=== PATIENT | female | born 1930 | race Caucasian/White ===

== ENCOUNTER 2017-02-03 11:37 | Inpatient (IN) | payer OTHER ==
[~2017-02-03] VITALS: Ht 154.9 cm; Wt 63.7 kg
--- NOTE | ~2017-02-03 | 2DMMODE ---
[facility] [address] [facility] [place] [address] 2 D/M-MODE ECHOCARDIOGRAM Name: TELMA MORRIS Room #: 217-P ADM IN M.R.#: [id number] Admission: 02/03/17 Attend Phys: Vishal Luevano, Discharge: Date of : [birth year] Date of Service: 02/04/17 1309 Report #: [id number] THIS REPORT FOR: //name// APPROVED REPORT Study performed: 02/04/2017 10:21:11 EXAM: Comprehensive 2D, Doppler, and color-flow Echocardiogram Patient Location: Bedside Room #: 217 Status: on-call Other Information Study Quality: Excellent Indications Congestive Heart Failure Atrial Fibrillation Dyspnea 2D Dimensions RVDd: 47.62 mm LVEF(%): 53.32 (>50%) IVSd: 14.02 (7-11mm) LVOT Diam: 22.12 (18-24mm) LVDd: 40.37 mm PWd: 16.06 (7-11mm) LVDs: 29.43 (25-40mm) Aortic Root: 34.41 mm IVC: 32.00 mm Randolph's LVEF: 53.32 % Volumes Left Atrial Volume (Systole) Single Plane 4CH: 133.35 mL Single Plane 2CH: 99.49 mL LA ESV Index: 75.00 mL/m2 Aortic Valve AoV Peak Jeramie.: 0.94 m/s AO Peak Gr.: 3.53 mmHg LVOT Max P.38 mmHg LVOT Max V: 0.59 m/s WHITLEY Vmax: 2.40 cm2 AI Vmax: 2.97 m/s AI Yell: 1.11 m/s2 AI PHT: 774.68 ms Mitral Valve MV Decel. Time: 132.79 ms [facility] [address] [place] [address] 2 D/M-MODE ECHOCARDIOGRAM Name: TELMA MORRIS Room #: [address] [place] [address] IN .R.#: [id number] Admission: 02/03/17 Attend Phys: Vishal Luevano, Discharge: Date of : [birth year] Date of Service: 02/04/17 1309 Report #: [id number] MV E Max Jeramie.: 1.10 m/s IVRT: 89.97 ms Pulmonary Valve PV Peak Jeramie.: 0.59 m/s PV Peak Gr.: 1.40 mmHg Tricuspid Valve TR Peak Jeramie.: 3.00 m/s RAP Estimate: 15.00 mmHg TR Peak Gr.: 36.05 mmHg PA Pressure: 51.00 mmHg Left Ventricle The left ventricle is normal size. There is normal LV segmental wall motion. Mild to moderate concentric left ventricular hypertrophy. The left ventricular systolic function is normal. The left ventricular ejection fraction is within the normal range. LVEF is 55-60%. This study is not technically sufficient to allow evaluation of the LV diastolic function due to atrial fibrillation. Right Ventricle Right ventricle is dilated. Right ventricle is hypokinetic. Atria Left atrium is dilated. Right atrium is dilated. Aortic Valve The aortic valve is normal in structure. Aortic valve is calcified. Aortic valve leaflets are mildly thickened. Mild aortic regurgitation. There is no aortic valvular stenosis. Mitral Valve The mitral valve is normal in structure. There is mitral annular calcification. Mitral valve leaflets are thickened. Mild to moderate mitral regurgitation. No evidence of mitral valve stenosis. Tricuspid Valve The tricuspid valve is normal in structure. There is no tricuspid valve stenosis. There is moderate to severe tricuspid regurgitation. The right atrial pressure is estimated at 15 mmHg. There is moderate pulmonary hypertension. PAP 50 mmHG Pulmonic Valve The pulmonary valve is normal in structure. Trace pulmonic regurgitation. [facility] [address] [place] [address] 2 D/M-MODE ECHOCARDIOGRAM Name: TELMA MORRIS Room #: 217-P [facility]#: [id number] Admission: 02/03/17 Attend Phys: Vishal Luevano, Discharge: Date of : [birth year] Date of Service: 02/04/17 1309 Report #: [id number] Great Vessels The aortic root is normal in size. Dilated IVC with poor inspiration collapse is consistent with elevated right atrial pressure. Pericardium There is no pericardial effusion. <Conclusion> The left ventricle is normal size. Mild to moderate concentric left ventricular hypertrophy. The left ventricular systolic function is normal. The left ventricular ejection fraction is within the normal range. LVEF is 55-60%. There is normal LV segmental wall motion. Right ventricle is dilated. Right ventricle is hypokinetic. Left atrium is dilated. Right atrium is dilated. The aortic valve is normal in structure. Aortic valve is calcified. Aortic valve leaflets are mildly thickened. There is no aortic valvular stenosis. The mitral valve is normal in structure. There is mitral annular calcification. Mitral valve leaflets are thickened. Mild to moderate mitral regurgitation. Mild to moderate mitral regurgitation. There is moderate to severe tricuspid regurgitation. The right atrial pressure is estimated at 15 mmHg. There is moderate pulmonary hypertension. PAP 50 mmHG Dilated IVC with poor inspiration collapse is consistent with elevated right atrial pressure. There is no pericardial effusion. <ELECTRONICALLY SIGNED> By: Lyndon Mcmullen MD 02/04/17 1309 1309 1309 Lyndon Mcmullen MD /INF
--- NOTE | ~2017-02-03 | EKG ---
[address] [address] ELECTROCARDIOGRAM REPORT Name: ARTUROTELMA Room #: 217-P ADM IN M.R.#: [id number] Admission: 02/03/17 Attend Phys: Vishal Luevano DO Discharge: Date of : [birth year] Report #: [id number] THIS REPORT FOR: //name// [facility] ED Test Date: 2017-02-03 Test Time: 11:46:53 Pat Name: TELMA MORRIS Department: Room: 217 Gender: F [employer] Worker: james : [id number] Requested By: Rodney Denis Order Number: [id number] MD: Lyndon Mcmullen Measurements Intervals [place] Rate: 91 P: IA: QRS: 5 QRSD: 91 T: 5 QT: 369 QTc: 455 Interpretive Statements Atrial fibrillation Low voltage, extremity leads No previous ECG available for comparison Electronically Signed On 02-05-2017 22:07:53 CDT by Lyndon Mcmullen [email or web address] <ELECTRONICALLY SIGNED> By: Lyndon Mcmullen MD 02/05/17 2207 D: [id number] Lyndon Mcmullen MD /GALE
[2017-02-03 11:38] VITALS: BP 130/77
[2017-02-03 11:48] LABS: HEMATOCRIT 38.9 % (37.0-47.0); HEMOGLOBIN 13.2 gm/dL (12.0-15.0); MCH 33.6 pg (26.0-34.0); MCV 98.9 fL (80.0-100.0); PLATELET COUNT 168 thou/uL (150-400); RBC 3.94 mil/uL (4.20-5.00); RDW 18.2 % (10.5-14.5); WBC 6.4 thou/uL (4.0-11.0)
[2017-02-03 11:49] LABS: MANUAL DIFF YES
[2017-02-03 12:02] LABS: ANION GAP 7 mmol/L (7-16); BUN 21 mg/dL (7-18); CALCIUM 8.8 mg/dL (8.5-10.1); CHLORIDE 104 mmol/L (98-107); CO2 27 mmol/L (21-32); GLUCOSE 138 mg/dL (74-106); POTASSIUM 4.6 mmol/L (3.5-5.1); SODIUM 138 mmol/L (136-145)
[2017-02-03 12:08] LABS: ALBUMIN 3.5 g/dL (3.4-5.0); ALKALINE PHOSPHATASE 125 U/L (46-116); MAGNESIUM 1.9 mg/dL (1.8-2.4); SGOT 30 U/L (15-37); SGPT 23 U/L (30-65); TOTAL PROTEIN 6.4 g/dL (6.4-8.2); TROPONIN-I < 0.04 ng/mL (<0.04-0.07)
[2017-02-03 12:34] LABS: ABSOLUTE NEUTROPHILS 5.1 thou/uL (1.4-8.2); ANISOCYTOSIS 2+; TOTAL CELL COUNT 100
[2017-02-03 12:35] LABS: BURR CELLS 1+; HYPOCHROMASIA 1+; OVALOCYTES 1+; POIKILOCYTOSIS 2+
[2017-02-03 15:29] LABS: INR 1.7; PROTIME 17.3 Seconds (9.3-11.4)
[2017-02-03] MEDS ORDERED: COUMADIN 1MG TAB1 M1 PO (18:07)
[2017-02-03] MEDS ORDERED: BUSPIRONE HCL10 MG PO (18:08)
[2017-02-03] MEDS ORDERED: TUMS PO (18:09)
[2017-02-03] MEDS ORDERED: CLARITIN10 M3 PO (18:10)
[2017-02-03] MEDS ORDERED: COENZYME Q10200 M2 PO (18:12)
[2017-02-03] MEDS ORDERED: CYMBALTA60 MG PO (18:13)
[2017-02-03] MEDS ORDERED: NEURONTIN300 MG PO (18:14)
[2017-02-03] MEDS ORDERED: NORCO 10-325 T1 EACH PO (18:15)
[2017-02-03] MEDS ORDERED: IRON325 PO (18:17)
[2017-02-03] MEDS ORDERED: LASIX 40 MG TAB40 M2 PO (18:18)
[2017-02-03] MEDS ORDERED: ARAVA20 MG PO (18:19)
[2017-02-03] MEDS ORDERED: LIPITOR 20 MG T20 M1 PO (18:20)
[2017-02-03] MEDS ORDERED: MAGOX 400400 MG PO (18:21)
[2017-02-03] MEDS ORDERED: LOPRESSOR50 MG PO (18:23)
[2017-02-03] MEDS ORDERED: K-TAB ER20 MEQ PO (18:25)
[2017-02-03] MEDS ORDERED: POTASSIUM99 M2 PO (18:26)
[2017-02-03] MEDS ORDERED: PREDNISONE 5 MG5 M1 PO (18:28)
[2017-02-03] MEDS ORDERED: SUPER B COMPLE1 EAC2 PO (18:30)
[2017-02-03] MEDS ORDERED: TRAZODONE HCL50 MG PO (18:31)
[2017-02-03] MEDS ORDERED: VITAMIN D2000 UNIT PO (18:33)
[2017-02-03 19:11] VITALS: BP 129/83
[2017-02-03 23:19] VITALS: BP 105/70
[2017-02-04 03:16] VITALS: BP 118/80
[2017-02-04 04:10] LABS: URINE BILIRUBIN NEGATIVE (Negative); URINE BLOOD NEGATIVE (Negative); URINE COLOR YELLOW; URINE GLUCOSE-RANDOM* NEGATIVE (Negative); URINE KETONES NEGATIVE (Negative); URINE LEUKOCYTES-REFLEX NEGATIVE (Negative); URINE PROTEIN (DIPSTICK) NEGATIVE (Negative); URINE SPECIFIC GRAVITY <= 1.005 (1.003-1.035); URINE UROBILINOGEN 0.2 E.U./dl (0.2-1.0)
[2017-02-04 05:33] LABS: INR 1.8; PROTIME 17.8 Seconds (9.3-11.4)
[2017-02-04 05:34] LABS: ABSOLUTE NEUTROPHILS 2.8 thou/uL (1.4-8.2); HEMATOCRIT 38.2 % (37.0-47.0); HEMOGLOBIN 12.7 gm/dL (12.0-15.0); LYMPHOCYTES 14.6 % (24.0-44.0); MCH 33.2 pg (26.0-34.0); MCHC 33.3 g/dL (28.0-37.0); MCV 99.8 fL (80.0-100.0); MONOCYTES 10.2 % (1.0-8.0); PLATELET COUNT 158 thou/uL (150-400); POLYS 65.2 % (36.0-66.0); RBC 3.82 mil/uL (4.20-5.00); RDW 18.5 % (10.5-14.5); WBC 4.3 thou/uL (4.0-11.0)
[2017-02-04 05:41] LABS: MANUAL DIFF NO
[2017-02-04 06:06] LABS: ALBUMIN 3.1 g/dL (3.4-5.0); CALCIUM 8.6 mg/dL (8.5-10.1); CREATININE 1.1 mg/dL (0.6-1.0); MAGNESIUM 1.7 mg/dL (1.8-2.4); POTASSIUM 4.4 mmol/L (3.5-5.1); TOTAL BILIRUBIN 0.7 mg/dL (<0.1-1.0); TOTAL PROTEIN 5.9 g/dL (6.4-8.2)
[2017-02-04 08:24] VITALS: BP 128/90
[2017-02-04 12:50] VITALS: BP 118/71
[2017-02-04 16:29] VITALS: BP 110/65
[2017-02-04 19:53] VITALS: BP 117/81
[2017-02-05 04:55] VITALS: BP 120/79
[2017-02-05 05:27] LABS: ABSOLUTE NEUTROPHILS 3.1 thou/uL (1.4-8.2); BASOPHILS 0.8 % (0.0-2.0); EOSINOPHILS 6.8 % (0.0-3.0); HEMATOCRIT 39.5 % (37.0-47.0); HEMOGLOBIN 13.3 gm/dL (12.0-15.0); LYMPHOCYTES 17.8 % (24.0-44.0); MCH 33.4 pg (26.0-34.0); MCHC 33.6 g/dL (28.0-37.0); MCV 99.4 fL (80.0-100.0); MONOCYTES 11.2 % (1.0-8.0); PLATELET COUNT 164 thou/uL (150-400); POLYS 63.4 % (36.0-66.0); RBC 3.98 mil/uL (4.20-5.00); RDW 17.8 % (10.5-14.5); WBC 4.9 thou/uL (4.0-11.0)
[2017-02-05 05:36] LABS: MANUAL DIFF NO
[2017-02-05 05:39] LABS: INR 1.8; PROTIME 18.7 Seconds (9.3-11.4)
[2017-02-05 05:48] LABS: ALBUMIN 3.2 g/dL (3.4-5.0); CALCIUM 8.4 mg/dL (8.5-10.1); CREATININE 1.1 mg/dL (0.6-1.0); POTASSIUM 4.3 mmol/L (3.5-5.1); TOTAL BILIRUBIN 0.8 mg/dL (<0.1-1.0); TOTAL PROTEIN 5.8 g/dL (6.4-8.2)
[2017-02-05 08:00] VITALS: BP 107/60
[2017-02-05 12:00] VITALS: BP 132/85
[2017-02-05 16:00] VITALS: BP 139/84
[2017-02-05 19:12] VITALS: BP 105/68
[2017-02-06 02:46] LABS: ABSOLUTE NEUTROPHILS 3.2 thou/uL (1.4-8.2); BASOPHILS 1.4 % (0.0-2.0); EOSINOPHILS 6.3 % (0.0-3.0); HEMATOCRIT 42.2 % (37.0-47.0); HEMOGLOBIN 14.2 gm/dL (12.0-15.0); LYMPHOCYTES 16.1 % (24.0-44.0); MCHC 33.5 g/dL (28.0-37.0); MCV 98.3 fL (80.0-100.0); MONOCYTES 11.3 % (1.0-8.0); PLATELET COUNT 180 thou/uL (150-400); POLYS 64.9 % (36.0-66.0); RBC 4.29 mil/uL (4.20-5.00); RDW 17.4 % (10.5-14.5); WBC 4.9 thou/uL (4.0-11.0)
[2017-02-06 02:51] LABS: MANUAL DIFF NO
[2017-02-06 02:58] LABS: INR 1.7; PROTIME 17.7 Seconds (9.3-11.4)
[2017-02-06 03:06] LABS: ALBUMIN 3.4 g/dL (3.4-5.0); CALCIUM 8.8 mg/dL (8.5-10.1); POTASSIUM 4.5 mmol/L (3.5-5.1); TOTAL BILIRUBIN 0.8 mg/dL (<0.1-1.0); TOTAL PROTEIN 6.1 g/dL (6.4-8.2)
[2017-02-06 03:30] VITALS: BP 142/86
[2017-02-06 13:22] VITALS: BP 119/71
[2017-02-06 16:54] VITALS: BP 85/58
[2017-02-06 19:30] VITALS: BP 126/74
[2017-02-07 03:11] LABS: INR 1.6; PROTIME 16.7 Seconds (9.3-11.4)
[2017-02-07 04:00] VITALS: BP 133/88
[2017-02-07 07:54] VITALS: BP 132/85
[2017-02-07 11:48] VITALS: BP 103/70
== END 2017-02-07 16:47 | DRG 292 ==
LOC: ER 11:37 → EROBS 15:46 → 2N 15:46 → ER 16:58 → 2N 17:03
PROVIDERS: Emergency Medicine; Internal Medicine Geriatric Medicine; Nurse Practitioner Family
DX: I11.0 Hypertensive heart disease with heart failure (principal); E44.1 Mild protein-calorie malnutrition; I50.31 Acute diastolic (congestive) heart failure; I48.91 Unspecified atrial fibrillation; I73.9 Peripheral vascular disease, unspecified; M06.9 Rheumatoid arthritis, unspecified; F32.9 Major depressive disorder, single episode, unspecified; G62.9 Polyneuropathy, unspecified; D72.825 Bandemia; D72.1 Eosinophilia; E27.9 Disorder of adrenal gland, unspecified; I27.2 Other secondary pulmonary hypertension; Z68.26 Body mass index [BMI] 26.0-26.9, adult; Z90.710 Acquired absence of both cervix and uterus; Z79.52 Long term (current) use of systemic steroids; Z86.73 Personal history of transient ischemic attack (TIA), and cerebral infarction without residual deficits; Z85.3 Personal history of malignant neoplasm of breast; Z79.01 Long term (current) use of anticoagulants; Z79.899 Other long term (current) drug therapy
CPT/HCPCS: 10081